=== PATIENT | male | born 1930 | race Caucasian/White ===

== ENCOUNTER 2020-10-24 15:45 | Inpatient (IN) | payer OTHER ==
[2020-10-24] MEDS ORDERED: SODIUM CHLORIDE 1,932 ML IV ONE (16:07)
[2020-10-24] MEDS ORDERED: LIDOCAINE 0.4% PREMIX IVPB 2,000 MG/500 ML INFUS..BTL IV SCH (16:45)
[2020-10-24] MEDS ORDERED: SODIUM CHLORIDE 0.9% 1000 ML INFUS.BAG IV ONE (16:50)
[2020-10-24 17:24] LABS: BASO % 0.4 % (0-2.0); EOS % 1.4 % (0-4.5); HEMATOCRIT 36.7 % (35.4-49); LYMPH % 15.3 % (8-40); MCH 29.4 pg (25.7-33.7); MCHC 32.8 g/dl (32.0-35.9); MEAN CELL VOLUME 89.5 fl (80-96); MONO % 10.6 % (3.8-10.2); NEUT % 72.3 % (42.8-82.8); PLATELET COUNT 97 10^3/uL (134-434); WHITE BLOOD COUNT 5.3 K/mm3 (4.0-10.0)
[2020-10-24 17:33] LABS: INR 1.47 (0.83-1.09); PROTHROMBIN TIME (PATIENT) 17.9 SEC (9.7-13.0)
[2020-10-24 17:36] LABS: ACTIVATED PTT 29.9 SECONDS (25.2-36.5)
[2020-10-24 17:40] LABS: VENOUS BASE EXCESS -4.7 mmol/L (-2-2); VENOUS O2 SATURATION 71.8 % (70-80); VENOUS PCO2 34.2 mmHg (38-52); VENOUS PH 7.377 (7.310-7.410)
[2020-10-24 17:47] LABS: CHLORIDE 114 mmol/L (98-107); SODIUM 145 mmol/L (136-145)
[2020-10-24 17:52] LABS: CALCIUM 8.9 mg/dL (8.5-10.1); GLUCOSE,RANDOM 142 mg/dL (74-106)
[2020-10-24 17:53] LABS: ALBUMIN 3.8 g/dl (3.4-5.0); ANION GAP 10 MMOL/L (8-16); BLOOD UREA NITROGEN 56.1 mg/dL (7-18); CO2 21 mmol/L (21-32)
[2020-10-24 17:55] LABS: SGPT/ALT 37 U/L (13-61)
[2020-10-24 17:56] LABS: CREATININE 1.7 mg/dL (0.55-1.3); SGOT/AST 32 U/L (15-37)
[2020-10-24 17:57] LABS: BILIRUBIN,TOTAL 1.1 mg/dL (0.2-1); TOT PROT 6.4 g/dl (6.4-8.2)
[2020-10-24 18:01] LABS: ALK PHOS 145 U/L (45-117)
[2020-10-24] MEDS ORDERED: AMIODARONE IN DEXTROSE,ISO-OSM 360 MG/200 ML BAG ONE (18:28)
[2020-10-24] MEDS ORDERED: AMIODARONE IN DEXTROSE,ISO-OSM 150 MG/100 ML BAG IVPB ONE (18:30)
[2020-10-24] MEDS ORDERED: AMIODARONE IN DEXTROSE,ISO-OSM 360 MG/200 ML BAG IVPB ONE (18:40)
[2020-10-24 19:05] LABS: MAGNESIUM 2.4 mg/dL (1.8-2.4)
[2020-10-24 20:25] LABS: LACTIC ACID 2.4 mmol/L (0.4-2.0)
[2020-10-24] MEDS ORDERED: ALBUTEROL SO4 2.5/IPRATROPIUM 0.5 INH SOL 3 ML VIAL.NEB. NEB ONE (22:09)
[2020-10-25] MEDS ORDERED: AMIODARONE IN DEXTROSE,ISO-OSM 360 MG/200 ML BAG IVPB ONE (00:40)
[2020-10-25] MEDS: AMIODARONE IN DEXTROSE,ISO-OSM 360 MG/200 ML BAG IVPB SCH ×2 (01:00→12:52)
[2020-10-25 01:34] LABS: LACTIC ACID 2.3 mmol/L (0.4-2.0)
[2020-10-25 07:29] LABS: BASO % 0.3 % (0-2.0); HEMATOCRIT 35.1 % (35.4-49); HEMOGLOBIN 11.8 GM/dL (11.7-16.9); LYMPH % 11.2 % (8-40); MCH 29.7 pg (25.7-33.7); MCHC 33.6 g/dl (32.0-35.9); MEAN CELL VOLUME 88.2 fl (80-96); MEAN PLT VOLUME 10.7 fl (7.5-11.1); MONO % 14.5 % (3.8-10.2); PLATELET COUNT 67 10^3/uL (134-434); RBC 3.98 M/mm3 (4.00-5.60); RDW 16.6 % (11.9-15.9); WHITE BLOOD COUNT 4.8 K/mm3 (4.0-10.0)
[2020-10-25 07:50] LABS: CALCIUM 8.4 mg/dL (8.5-10.1)
[2020-10-25 07:51] LABS: ALBUMIN 3.4 g/dl (3.4-5.0); BLOOD UREA NITROGEN 45.7 mg/dL (7-18); MAGNESIUM 2.2 mg/dL (1.8-2.4)
[2020-10-25 07:54] LABS: CREATININE 1.3 mg/dL (0.55-1.3); PHOSPHOROUS 3.1 mg/dL (2.5-4.9)
[2020-10-25 07:55] LABS: BILIRUBIN,TOTAL 0.7 mg/dL (0.2-1); TOT PROT 5.9 g/dl (6.4-8.2)
[2020-10-25] MEDS: amLODIPine BESYLATE 5 MG TABLET (FP) PO SCH ×2 (09:28→11:00)
[2020-10-25] MEDS: CARVEDILOL 25 MG TABLET (FP) PO SCH ×3 (09:28→21:18)
[2020-10-25] MEDS: TAMSULOSIN HCL 0.4 MG CAP PO SCH (09:28)
[2020-10-25] MEDS: MUPIROCIN 2% TOPICAL OINTMENT FOR DECOLONIZATION NS SCH ×2 (09:29→21:18)
[2020-10-25] MEDS ORDERED: CARVEDILOL 25 MG TABLET (FP) PO SCH (10:00)
[2020-10-25] MEDS ORDERED: PT OWN MED DRAWER 7, Y5N ONE ×2 (10:02→12:40)
[2020-10-25] MEDS: TRIAMCINOLONE ACET 0.1% OINT 15 GM TUBE TP SCH ×2 (12:52→21:19)
[2020-10-25] MEDS: CHLORHEXIDINE GLUCONATE 4% CLEANSER FOR DECOLONIZATION TP SCH (21:18)
[2020-10-25] MEDS: AMIODARONE HCL 200 MG TABLET PO SCH (21:18)
[2020-10-25] MEDS ORDERED: FUROSEMIDE 20 MG TABLET (FP) PO PRN ×2 (22:25)
[2020-10-26 07:31] LABS: BASO % 0.2 % (0-2.0); EOS % 2.6 % (0-4.5); HEMATOCRIT 34.9 % (35.4-49); HEMOGLOBIN 11.7 GM/dL (11.7-16.9); MCH 29.4 pg (25.7-33.7); MCHC 33.5 g/dl (32.0-35.9); MEAN CELL VOLUME 87.8 fl (80-96); MEAN PLT VOLUME 10.2 fl (7.5-11.1); MONO % 9.1 % (3.8-10.2); NEUT % 75.1 % (42.8-82.8); PLATELET COUNT 70 10^3/uL (134-434); RBC 3.98 M/mm3 (4.00-5.60); RDW 16.6 % (11.9-15.9); WHITE BLOOD COUNT 3.8 K/mm3 (4.0-10.0)
[2020-10-26 08:09] LABS: CALCIUM 7.8 mg/dL (8.5-10.1)
[2020-10-26 08:10] LABS: ALBUMIN 2.9 g/dl (3.4-5.0); BLOOD UREA NITROGEN 37.1 mg/dL (7-18)
[2020-10-26 08:13] LABS: CREATININE 1.2 mg/dL (0.55-1.3)
[2020-10-26 08:15] LABS: BILIRUBIN,TOTAL 0.8 mg/dL (0.2-1); TOT PROT 5.2 g/dl (6.4-8.2)
[2020-10-26] MEDS: TAMSULOSIN HCL 0.4 MG CAP PO SCH (09:30)
[2020-10-26] MEDS: PANTOPRAZOLE 40 MG TABLET PO SCH (09:36)
[2020-10-26] MEDS: TRIAMCINOLONE ACET 0.1% OINT 15 GM TUBE TP SCH ×2 (09:36→21:05)
[2020-10-26] MEDS: AMIODARONE HCL 200 MG TABLET PO SCH ×2 (09:36→21:06)
[2020-10-26] MEDS: MUPIROCIN 2% TOPICAL OINTMENT FOR DECOLONIZATION NS SCH ×2 (09:36→21:05)
[2020-10-26] MEDS: CARVEDILOL 25 MG TABLET (FP) PO SCH ×3 (13:30→23:18)
[2020-10-26 15:52] VITALS: BMI 22.1
[2020-10-26] MEDS: CHLORHEXIDINE GLUCONATE 4% CLEANSER FOR DECOLONIZATION TP SCH (21:06)
[2020-10-26] MEDS: APIXABAN 5 MG TABLET PO SCH (21:06)
[2020-10-27 07:33] LABS: BASO % 0.4 % (0-2.0); EOS % 2.8 % (0-4.5); HEMATOCRIT 34.4 % (35.4-49); HEMOGLOBIN 11.3 GM/dL (11.7-16.9); LYMPH % 19.1 % (8-40); MCH 29.2 pg (25.7-33.7); MEAN CELL VOLUME 88.3 fl (80-96); MEAN PLT VOLUME 10.1 fl (7.5-11.1); MONO % 11.7 % (3.8-10.2); PLATELET COUNT 70 10^3/uL (134-434); RBC 3.89 M/mm3 (4.00-5.60); RDW 16.7 % (11.9-15.9); WHITE BLOOD COUNT 3.3 K/mm3 (4.0-10.0)
[2020-10-27 07:47] LABS: CALCIUM 7.7 mg/dL (8.5-10.1)
[2020-10-27 07:48] LABS: ALBUMIN 2.9 g/dl (3.4-5.0); BLOOD UREA NITROGEN 32.2 mg/dL (7-18)
[2020-10-27 07:51] LABS: CREATININE 1.2 mg/dL (0.55-1.3)
[2020-10-27 07:52] LABS: BILIRUBIN,TOTAL 0.9 mg/dL (0.2-1); TOT PROT 5.2 g/dl (6.4-8.2)
[2020-10-27] MEDS: TAMSULOSIN HCL 0.4 MG CAP PO SCH (08:43)
[2020-10-27] MEDS: CARVEDILOL 25 MG TABLET (FP) PO SCH (09:12)
[2020-10-27] MEDS: AMIODARONE HCL 200 MG TABLET PO SCH (09:12)
[2020-10-27] MEDS: APIXABAN 5 MG TABLET PO SCH (09:12)
[2020-10-27] MEDS: PANTOPRAZOLE 40 MG TABLET PO SCH (09:12)
[2020-10-27] MEDS: TRIAMCINOLONE ACET 0.1% OINT 15 GM TUBE TP SCH (09:15)
[2020-10-27] MEDS: MUPIROCIN 2% TOPICAL OINTMENT FOR DECOLONIZATION NS SCH (09:15)
[2020-10-27 15:22] VITALS: BP 94/57; PULSE 66; TEMP 98.6
== END 2020-10-27 17:24 | disposition home or self-care (01) | DRG 309 ==
LOC: JER 15:45 → JERBED 22:05 → JICU 22:27
PROVIDERS: ADMIT Specialist; ATTEND Specialist
DX: I47.2 Ventricular tachycardia (principal); I42.0 Dilated cardiomyopathy; E87.2 Acidosis; N17.9 Acute kidney failure, unspecified; I50.22 Chronic systolic (congestive) heart failure; I25.110 Atherosclerotic heart disease of native coronary artery with unstable angina pectoris; I11.0 Hypertensive heart disease with heart failure; I50.9 Heart failure, unspecified; I48.0 Paroxysmal atrial fibrillation; N40.0 Benign prostatic hyperplasia without lower urinary tract symptoms; I65.29 Occlusion and stenosis of unspecified carotid artery; I08.3 Combined rheumatic disorders of mitral, aortic and tricuspid valves; L11.1 Transient acantholytic dermatosis [Grover]; I27.20 Pulmonary hypertension, unspecified; D69.6 Thrombocytopenia, unspecified; Z95.0 Presence of cardiac pacemaker; Z79.01 Long term (current) use of anticoagulants; Z95.5 Presence of coronary angioplasty implant and graft
CPT/HCPCS: 36415; 71045-TC-FY; 80053; 82803; 83605; 83735; 83880; 84100; 84484; 85025; 85610; 85730; 86850; 86900; 86901; 87040; 93005; 93010; 99291; C9803; J0282; U0003; U0005

== ENCOUNTER 2021-03-04 14:17 | Inpatient (IN) | payer OTHER ==
[2021-03-04] MEDS ORDERED: ACETAMINOPHEN 325 MG TABLET (FP) PO ONE (15:35)
[2021-03-04] MEDS ORDERED: SODIUM CHLORIDE 500 ML IV SCH (15:45)
[2021-03-04 16:01] LABS: BASO % 0.3 % (0-2.0); EOS % 1.2 % (0-4.5); HEMATOCRIT 33.9 % (35.4-49); HEMOGLOBIN 11.5 GM/dL (11.7-16.9); LYMPH % 16.4 % (8-40); MCH 31.2 pg (25.7-33.7); MCHC 33.9 g/dl (32.0-35.9); MEAN PLT VOLUME 8.4 fl (7.5-11.1); MONO % 8.8 % (3.8-10.2); NEUT % 73.3 % (42.8-82.8); PLATELET COUNT 101 10^3/uL (134-434); RBC 3.68 M/mm3 (4.00-5.60); RDW 16.4 % (11.9-15.9); WHITE BLOOD COUNT 4.4 K/mm3 (4.0-10.0)
[2021-03-04] MEDS ORDERED: ACETAMINOPHEN 325 MG TABLET (FP) ONE (16:05)
[2021-03-04 16:17] LABS: CHLORIDE 115 mmol/L (98-107); SODIUM 145 mmol/L (136-145)
[2021-03-04 16:19] LABS: CALCIUM 8.4 mg/dL (8.5-10.1)
[2021-03-04 16:20] LABS: ALBUMIN 3.4 g/dl (3.4-5.0); ANION GAP 4 MMOL/L (8-16); BLOOD UREA NITROGEN 31.6 mg/dL (7-18); CO2 26 mmol/L (21-32); GLUCOSE,RANDOM 132 mg/dL (74-106)
[2021-03-04 16:23] LABS: CREATININE 1.2 mg/dL (0.55-1.3); SGOT/AST 34 U/L (15-37); SGPT/ALT 36 U/L (13-61)
[2021-03-04 16:24] LABS: BILIRUBIN,TOTAL 0.9 mg/dL (0.2-1); TOT PROT 6.2 g/dl (6.4-8.2)
[2021-03-04 16:26] LABS: ALK PHOS 156 U/L (45-117)
[2021-03-04 17:10] LABS: N-TERMINAL BNP 2315.3 pg/ml (5-450)
[2021-03-04 19:55] LABS: EPI CELLS 3 /uL (0-25.1); HYALINE CASTS 2 /uL (0-3.1); URINE APPEARANCE CLOUDY; URINE BACTERIA 2 /uL (0-1359); URINE BILIRUBIN NEGATIVE (NEGATIVE); URINE COLOR YELLOW; URINE GLUCOSE (UA) NEGATIVE (NEGATIVE); URINE KETONE NEGATIVE (NEGATIVE); URINE LEUK ESTERASE NEGATIVE (NEGATIVE); URINE NITRITE NEGATIVE (NEGATIVE); URINE PROTEIN 1+ (NEGATIVE); URINE RBC 5 /uL (0-23.9); URINE WBC 5 /uL (0-25.8)
[2021-03-05] MEDS ORDERED: FUROSEMIDE 20 MG TABLET (FP) PO PRN (01:05)
[2021-03-05] MEDS ORDERED: ACETAMINOPHEN 1000 MG/100 ML VIAL IVPB PRN (01:08)
[2021-03-05] MEDS: SODIUM CHLORIDE 1,000 ML IV SCH ×2 (02:44→15:51)
[2021-03-05 03:14] VITALS: BMI 20.5
[2021-03-05] MEDS ORDERED: FLU VACC QS2021-22(6MOS UP)/PF 60 MCG/0.5 ML SYRINGE IM ONE (10:00)
[2021-03-05] MEDS ORDERED: PT OWN MED DRAWER 7, Y5N ONE (10:20)
[2021-03-05] MEDS: APIXABAN 5 MG TABLET PO SCH ×2 (10:21→21:10)
[2021-03-05] MEDS: PANTOPRAZOLE 20 MG TABLET PO SCH (10:21)
[2021-03-05] MEDS: SACUBITRIL/VALSARTAN 49 MG-51 MG TABLET PO SCH ×2 (10:21→21:10)
[2021-03-05] MEDS: CARVEDILOL 25 MG TABLET (FP) PO SCH ×2 (10:21→21:10)
[2021-03-05] MEDS: AMIODARONE HCL 200 MG TABLET PO SCH ×2 (10:21→21:10)
[2021-03-05] MEDS: TAMSULOSIN HCL 0.4 MG CAP PO SCH (15:43)
[2021-03-05] MEDS: SPIRONOLACTONE 25 MG TABLET PO SCH (15:43)
[2021-03-06] MEDS: TAMSULOSIN HCL 0.4 MG CAP PO SCH (08:25)
[2021-03-06 09:12] LABS: INR 1.9 (0.83-1.09); PROTHROMBIN TIME (PATIENT) 21.4 SEC (9.7-13.0)
[2021-03-06 09:15] LABS: BASO % 0.3 % (0-2.0); EOS % 1.2 % (0-4.5); HEMATOCRIT 36.8 % (35.4-49); HEMOGLOBIN 12.7 GM/dL (11.7-16.9); LYMPH % 18.5 % (8-40); MCH 31.6 pg (25.7-33.7); MCHC 34.5 g/dl (32.0-35.9); MEAN CELL VOLUME 91.5 fl (80-96); MEAN PLT VOLUME 8.4 fl (7.5-11.1); MONO % 8.1 % (3.8-10.2); NEUT % 71.9 % (42.8-82.8); PLATELET COUNT 127 10^3/uL (134-434); RBC 4.02 M/mm3 (4.00-5.60); RDW 16.3 % (11.9-15.9); WHITE BLOOD COUNT 4.9 K/mm3 (4.0-10.0)
[2021-03-06 09:40] LABS: ALBUMIN 3.3 g/dl (3.4-5.0); BLOOD UREA NITROGEN 29.4 mg/dL (7-18); CALCIUM 8.4 mg/dL (8.5-10.1)
[2021-03-06 09:43] LABS: CREATININE 1.1 mg/dL (0.55-1.3)
[2021-03-06 09:44] LABS: BILIRUBIN,TOTAL 1.3 mg/dL (0.2-1)
[2021-03-06 09:45] LABS: TOT PROT 6.4 g/dl (6.4-8.2)
[2021-03-06] MEDS ORDERED: PT OWN MED DRAWER 7, Y5N ONE (10:43)
[2021-03-06] MEDS: SACUBITRIL/VALSARTAN 49 MG-51 MG TABLET PO SCH ×2 (10:50→22:11)
[2021-03-06] MEDS: CARVEDILOL 25 MG TABLET (FP) PO SCH ×2 (10:50→22:11)
[2021-03-06] MEDS: AMIODARONE HCL 200 MG TABLET PO SCH ×2 (10:50→22:11)
[2021-03-06] MEDS: PANTOPRAZOLE 20 MG TABLET PO SCH (10:50)
[2021-03-06] MEDS: APIXABAN 5 MG TABLET PO SCH ×2 (10:50→22:11)
[2021-03-06] MEDS: SPIRONOLACTONE 25 MG TABLET PO SCH (10:50)
[2021-03-06] MEDS: SODIUM CHLORIDE 1,000 ML IV SCH (10:50)
[2021-03-07] MEDS ORDERED: PT OWN MED DRAWER 7, Y5N ONE ×2 (09:34→21:44)
[2021-03-07] MEDS: PANTOPRAZOLE 20 MG TABLET PO SCH (09:38)
[2021-03-07] MEDS: SPIRONOLACTONE 25 MG TABLET PO SCH (09:38)
[2021-03-07] MEDS: CARVEDILOL 25 MG TABLET (FP) PO SCH ×2 (09:38→21:46)
[2021-03-07] MEDS: APIXABAN 5 MG TABLET PO SCH ×2 (09:38→21:46)
[2021-03-07] MEDS: TAMSULOSIN HCL 0.4 MG CAP PO SCH (09:38)
[2021-03-07] MEDS: SACUBITRIL/VALSARTAN 49 MG-51 MG TABLET PO SCH ×2 (09:38→21:46)
[2021-03-07] MEDS: SODIUM CHLORIDE 1,000 ML IV SCH (09:38)
[2021-03-07] MEDS: AMIODARONE HCL 200 MG TABLET PO SCH ×2 (09:38→21:46)
[2021-03-08 08:27] LABS: BASO % 0.3 % (0-2.0); EOS % 1.2 % (0-4.5); HEMATOCRIT 32.3 % (35.4-49); HEMOGLOBIN 10.9 GM/dL (11.7-16.9); LYMPH % 16.6 % (8-40); MCH 31.4 pg (25.7-33.7); MCHC 33.9 g/dl (32.0-35.9); MEAN CELL VOLUME 92.6 fl (80-96); MEAN PLT VOLUME 8.3 fl (7.5-11.1); MONO % 8.4 % (3.8-10.2); NEUT % 73.5 % (42.8-82.8); PLATELET COUNT 103 10^3/uL (134-434); RBC 3.48 M/mm3 (4.00-5.60); RDW 16.2 % (11.9-15.9); WHITE BLOOD COUNT 4.6 K/mm3 (4.0-10.0)
[2021-03-08 09:15] LABS: BLOOD UREA NITROGEN 28.1 mg/dL (7-18); CALCIUM 8.3 mg/dL (8.5-10.1)
[2021-03-08 09:16] LABS: ALBUMIN 2.8 g/dl (3.4-5.0)
[2021-03-08 09:19] LABS: CREATININE 1.1 mg/dL (0.55-1.3)
[2021-03-08 09:20] LABS: BILIRUBIN,TOTAL 0.7 mg/dL (0.2-1); TOT PROT 5.4 g/dl (6.4-8.2)
[2021-03-08] MEDS: AMIODARONE HCL 200 MG TABLET PO SCH ×2 (11:06→22:06)
[2021-03-08] MEDS: TAMSULOSIN HCL 0.4 MG CAP PO SCH (11:06)
[2021-03-08] MEDS: PANTOPRAZOLE 20 MG TABLET PO SCH (11:06)
[2021-03-08] MEDS: SACUBITRIL/VALSARTAN 49 MG-51 MG TABLET PO SCH ×2 (11:06→22:06)
[2021-03-08] MEDS: CARVEDILOL 25 MG TABLET (FP) PO SCH ×2 (11:06→22:06)
[2021-03-08] MEDS: SPIRONOLACTONE 25 MG TABLET PO SCH (11:06)
[2021-03-08] MEDS: APIXABAN 5 MG TABLET PO SCH ×2 (11:06→22:06)
[2021-03-08] MEDS ORDERED: PT OWN MED DRAWER 7, Y5N ONE (22:04)
[2021-03-08] MEDS: SODIUM CHLORIDE 1,000 ML IV SCH (22:06)
[2021-03-09] MEDS: APIXABAN 5 MG TABLET PO SCH ×2 (11:19→21:35)
[2021-03-09] MEDS: PANTOPRAZOLE 20 MG TABLET PO SCH (11:19)
[2021-03-09] MEDS: CARVEDILOL 25 MG TABLET (FP) PO SCH ×2 (11:19→21:35)
[2021-03-09] MEDS: TAMSULOSIN HCL 0.4 MG CAP PO SCH (11:19)
[2021-03-09] MEDS: AMIODARONE HCL 200 MG TABLET PO SCH ×2 (11:19→21:35)
[2021-03-09] MEDS: SPIRONOLACTONE 25 MG TABLET PO SCH (11:19)
[2021-03-09] MEDS: SACUBITRIL/VALSARTAN 49 MG-51 MG TABLET PO SCH ×2 (11:19→21:35)
[2021-03-09] MEDS ORDERED: PT OWN MED DRAWER 7, Y5N ONE (21:34)
[2021-03-10] MEDS: SPIRONOLACTONE 25 MG TABLET PO SCH (09:37)
[2021-03-10] MEDS: APIXABAN 5 MG TABLET PO SCH (09:37)
[2021-03-10] MEDS: CARVEDILOL 25 MG TABLET (FP) PO SCH (09:37)
[2021-03-10] MEDS: TAMSULOSIN HCL 0.4 MG CAP PO SCH (09:37)
[2021-03-10] MEDS: PANTOPRAZOLE 20 MG TABLET PO SCH (09:37)
[2021-03-10] MEDS: SACUBITRIL/VALSARTAN 49 MG-51 MG TABLET PO SCH (09:39)
[2021-03-10] MEDS: AMIODARONE HCL 200 MG TABLET PO SCH (09:40)
[2021-03-10 13:03] VITALS: BP 92/57; PULSE 60; TEMP 97.6
== END 2021-03-10 15:56 | DRG 536 ==
LOC: JER 14:17 → JERBED 19:21 → J6S 03-05 01:06
PROVIDERS: ADMIT Internal Medicine; ATTEND Internal Medicine
DX: S72.111A Displaced fracture of greater trochanter of right femur, initial encounter for closed fracture (principal); I50.32 Chronic diastolic (congestive) heart failure; I13.0 Hypertensive heart and chronic kidney disease with heart failure and stage 1 through stage 4 chronic kidney disease, or unspecified chronic kidney disease; I50.22 Chronic systolic (congestive) heart failure; I42.0 Dilated cardiomyopathy; I47.2 Ventricular tachycardia; I48.0 Paroxysmal atrial fibrillation; I25.10 Atherosclerotic heart disease of native coronary artery without angina pectoris; I27.20 Pulmonary hypertension, unspecified; I49.5 Sick sinus syndrome; Z95.0 Presence of cardiac pacemaker; I35.1 Nonrheumatic aortic (valve) insufficiency; I34.0 Nonrheumatic mitral (valve) insufficiency; I36.1 Nonrheumatic tricuspid (valve) insufficiency; N18.9 Chronic kidney disease, unspecified; K59.00 Constipation, unspecified; Z95.5 Presence of coronary angioplasty implant and graft; W19.XXXA Unspecified fall, initial encounter; Y93.89 Activity, other specified; Y92.009 Unspecified place in unspecified non-institutional (private) residence as the place of occurrence of the external cause; Y99.8 Other external cause status; R29.6 Repeated falls
CPT/HCPCS: 36415; 70450-TC; 71045-TC-FY; 72125-TC; 72170-TC-FY; 72192-TC; 73502-TC-RT-FY; 73560-TC-RT-FY; 73700-TC-RT; 80053; 81003; 82550; 82553; 82962; 83880; 84484; 85025; 85610; 87086; 90686; 93005; 93010; 97116-GP; 97162-GP; 99285-25; C9803; G0008; U0003; U0005